=== PATIENT | female | born 1975 | race Caucasian/White ===

== ENCOUNTER 2018-08-28 11:30 | Emergency (ER) | payer BC ==
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
[2018-08-28] MEDS ORDERED: LORazepam 2 MG/ML SDV IVPUSH ONE ×2 (11:43→12:55)
[2018-08-28] MEDS ORDERED: Sodium Chloride 0.9% 10 ML Syringe FLUSH PRN (11:43)
[2018-08-28] MEDS ORDERED: HYDROmorphone 1 MG/ML Syringe IVPUSH ONE (11:44)
[2018-08-28] MEDS ORDERED: Ondansetron 4 MG/2 ML SDV IVPUSH ONE (11:47)
== END 2018-08-28 13:52 | disposition home or self-care (01) ==
LOC: LL.ED 11:30
DX: M54.42 Lumbago with sciatica, left side (principal); I10 Essential (primary) hypertension; E78.5 Hyperlipidemia, unspecified; K21.9 Gastro-esophageal reflux disease without esophagitis; G47.30 Sleep apnea, unspecified; E78.00 Pure hypercholesterolemia, unspecified; M15.0 Primary generalized (osteo)arthritis; Z88.8 Allergy status to other drugs, medicaments and biological substances; Z88.2 Allergy status to sulfonamides; Z79.82 Long term (current) use of aspirin; Z79.899 Other long term (current) drug therapy
CPT/HCPCS: 96374; 96375; 96376; 99283-25; J1170; J2060; J2405

== ENCOUNTER 2019-05-27 12:55 | Emergency (ER) | payer BC ==
[2019-05-27 13:28] LABS: CHLORIDE,CL 104 mmol/L (98-107); SODIUM,NA 141 mmol/L (136-145)
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
== END 2019-05-27 14:20 | disposition home or self-care (01) ==
LOC: LL.ED 12:55
DX: R00.2 Palpitations (principal); I10 Essential (primary) hypertension; E78.00 Pure hypercholesterolemia, unspecified; K21.9 Gastro-esophageal reflux disease without esophagitis; M19.90 Unspecified osteoarthritis, unspecified site; E66.9 Obesity, unspecified; Z68.31 Body mass index [BMI] 31.0-31.9, adult; Z88.1 Allergy status to other antibiotic agents; Z88.2 Allergy status to sulfonamides; Z88.5 Allergy status to narcotic agent; Z79.899 Other long term (current) drug therapy
CPT/HCPCS: 36415; 80053; 83735; 84484; 85025; 93005; 99285-25

== ENCOUNTER 2023-02-16 12:01 | Emergency (ER) | payer BC | END 2023-02-16 13:40 | disposition home or self-care (01) | LOC: LL.ED 12:01 | DX: S01.01XA Laceration without foreign body of scalp, initial encounter (principal); S09.90XA Unspecified injury of head, initial encounter; S20.229A Contusion of unspecified back wall of thorax, initial encounter; E66.9 Obesity, unspecified; E78.00 Pure hypercholesterolemia, unspecified; I10 Essential (primary) hypertension; E78.5 Hyperlipidemia, unspecified; Z79.84 Long term (current) use of oral hypoglycemic drugs; Z79.899 Other long term (current) drug therapy; Z88.2 Allergy status to sulfonamides; Z88.8 Allergy status to other drugs, medicaments and biological substances; Z88.5 Allergy status to narcotic agent; Z88.1 Allergy status to other antibiotic agents; W01.198A Fall on same level from slipping, tripping and stumbling with subsequent striking against other object, initial encounter | CPT/HCPCS: 12001; 72040; 99283 ==

== ENCOUNTER 2025-01-27 08:52 | Day surgery (SDC) | payer BC ==
[~2025-01-27 08:52] MED LIST: Midazolam 1 MG/ML 2 ML SDV ONE; Propofol 200 MG/20 ML SDV ONE; Sodium Chloride 0.9% 10 ML Syringe FLUSH PRN
[2025-01-27] MEDS: Lactated Ringers 1,000 ML IV SCH (09:21)
== END 2025-01-27 11:00 | disposition home or self-care (01) ==
LOC: LL.SDS 08:52
PROVIDERS: ATTEND Surgery
DX: Z12.11 Encounter for screening for malignant neoplasm of colon (principal); K21.9 Gastro-esophageal reflux disease without esophagitis; K57.30 Diverticulosis of large intestine without perforation or abscess without bleeding; E78.00 Pure hypercholesterolemia, unspecified; I10 Essential (primary) hypertension; R73.03 Prediabetes; Z88.1 Allergy status to other antibiotic agents; Z88.2 Allergy status to sulfonamides; Z79.84 Long term (current) use of oral hypoglycemic drugs; Z88.8 Allergy status to other drugs, medicaments and biological substances; Z79.899 Other long term (current) drug therapy
CPT/HCPCS: 43239; 45378; J1596; J2250; J2704; J7120